=== PATIENT | male | born 1990 | race African-American/Black ===

== ENCOUNTER 2019-01-13 12:06 | Emergency (ER) | payer OTHER ==
[~2019-01-13] VITALS: Ht 185.4 cm; Wt 100.9 kg
[2019-01-13 12:14] VITALS: BP 136/85; Ht 185.4 cm; Wt 100.9 kg
== END 2019-01-13 14:53 | disposition home or self-care (01) ==
LOC: ED 12:06
DX: S52.125A Nondisplaced fracture of head of left radius, initial encounter for closed fracture (principal); W18.30XA Fall on same level, unspecified, initial encounter; Y93.61 Activity, american tackle football; Y92.321 Football field as the place of occurrence of the external cause; Y99.8 Other external cause status